=== PATIENT | female | born 1935 | race Caucasian/White ===

== ENCOUNTER 2022-12-13 12:10 | Observation (INO) | payer MEDICARE ==
[2022-12-13 12:50] LABS: #Basophils 0.1 thou/uL (0.0-0.2); #Eosinphils 0.3 thou/uL (0.0-0.7); #Monocytes 1.1 thou/uL (0.11-0.59); %Basophils 0.8 % (0.0-1.0); %Eosinophils 1.6 % (0.0-10.0); %Lymphocytes 11.6 % (21.0-51.0); %Monocytes 6.5 % (0.0-10.0); %Neutrophils 77.7 % (42.0-75.0); Hematocrit 45.1 % (36.0-47.0); Hemoglobin 15.5 g/dL (12.0-16.0); Mean Corpuscular HGB CONC 34.4 g/dL (32.0-36.0); Mean Corpuscular Hemoglobin 32.6 pg (27.0-31.0); Mean Corpuscular Volume 94.9 fl (78.0-98.0); Mean Platelet Volume 10.6 fL (7.4-10.4); Platelet Count 358 10x3/uL (130-400); RBC Distribution Width 14.8 % (11.5-14.5); Red Blood Cell (RBC) Count 4.75 mill/uL (4.20-5.40); White Blood Cell (WBC) Count 16.7 10x3/uL (4.8-10.8)
[2022-12-13] MEDS ORDERED: Metoprolol Tartrate 5 MG/5 ML VIAL ONE ×2 (13:13→17:04)
[2022-12-13] MEDS ORDERED: Aspirin Chewable 81 MG TAB ONE (13:13)
[2022-12-13 14:19] LABS: Bacteria/HPF None Seen HPF (None Seen); Bilirubin Negative (Negative); Blood, Urine Negative (Negative); CAUTI Indications for Culture Pelvic or flank pain; Clarity Clear (Clear); Glucose, Urine (Dipstick) Normal (Negative); Ketone, Urine Negative (Negative); Leukocyte Negative Leu/uL (Negative); Nitrite Negative (Negative); Protein, Urine (Dipstick) Negative (Neg-Trace); RBC/HPF 0-3 HPF (0-3); Specific Gravity, Urine 1.004 (1.002-1.036); Squamous Epithelial None Seen HPF (0-3); Urobilinogen Normal mg/dL (Less than 2); WBC/HPF None Seen HPF (0-3); pH, Urine 7.5 (5.0-9.0)
[2022-12-13 14:23] LABS: Urine Culture Reflex No No
[2022-12-13 14:52] LABS: ALT (SGPT) 30 U/L (8-55); AST (SGOT) 43 U/L (5-34); Albumin 5.1 g/dL (3.4-4.8); Alkaline Phosphatase 94 U/L (40-110); Anion Gap 18 mmol/L (10-20); BUN (Urea Nitrogen) 14 mg/dL (9.8-20.1); Bilirubin, Total 0.8 mg/dL (0.2-1.2); Calc. Creatinine Clearance 0 mL/min (70-130); Calcium 10.1 mg/dL (7.8-10.44); Carbon Dioxide 21 mmol/L (23-31); Chloride 99 mmol/L (98-107); Estimated GFR 63; Globulin 2.8 g/dL (2.4-3.5); Glucose 96 mg/dL (83-110); Potassium 4.1 mmol/L (3.5-5.1); Protein, Total 7.9 g/dL (5.8-8.1); Sodium 134 mmol/L (136-145)
[2022-12-13] MEDS ORDERED: Metoprolol Tartrate 25 MG TAB PO SCH (17:30)
[2022-12-13] MEDS ORDERED: Amlodipine 5 MG TAB PO SCH (17:45)
[2022-12-13 18:05] LABS: Troponin I Less than 0.010 ng/mL (< 0.028)
[2022-12-13 18:21] VITALS: BMI 17.0
[2022-12-13 20:03] LABS: Troponin I Less than 0.010 ng/mL (< 0.028)
[2022-12-13] MEDS ORDERED: NIFEdipine 10 MG CAP PO PRN (20:30)
[2022-12-13] MEDS: Apixaban 2.5 MG TAB PO SCH (21:02)
[2022-12-13] MEDS: Ruxolitinib Phosphate [Jakafi] 5 MG Tablet PO SCH (21:02)
[2022-12-14] MEDS: Acetaminophen 325 MG TAB PO PRN ×3 (00:03→18:08)
[2022-12-14] MEDS ORDERED: Propranolol 60 MG TAB PO SCH (09:00)
[2022-12-14] MEDS: Rosuvastatin 20 MG TAB PO SCH (09:25)
[2022-12-14] MEDS: Apixaban 2.5 MG TAB PO SCH ×2 (09:25→21:02)
[2022-12-14] MEDS: Clopidogrel Bisulfate 75 MG TAB PO SCH (09:25)
[2022-12-14] MEDS: Brimonidine Tartrate 0.2% Ophth Soln 5 ml Bottle L EYE SCH ×2 (09:29→21:02)
[2022-12-14] MEDS ORDERED: Propranolol 40 MG TAB PO SCH (10:30)
[2022-12-14] MEDS: Propranolol 40 MG TAB PO SCH (21:02)
[2022-12-15] MEDS: Acetaminophen 325 MG TAB PO PRN ×2 (01:25→08:02)
[2022-12-15 05:44] LABS: #Basophils 0.1 thou/uL (0.0-0.2); #Eosinphils 0.4 thou/uL (0.0-0.7); #Monocytes 1.1 thou/uL (0.11-0.59); #Neutrophils 13.3 thou/uL (1.40-6.50); %Basophils 0.7 % (0.0-1.0); %Eosinophils 2.4 % (0.0-10.0); %Lymphocytes 10.1 % (21.0-51.0); %Monocytes 6.5 % (0.0-10.0); %Neutrophils 78.9 % (42.0-75.0); Hematocrit 41.3 % (36.0-47.0); Hemoglobin 14.2 g/dL (12.0-16.0); Mean Corpuscular HGB CONC 34.4 g/dL (32.0-36.0); Mean Corpuscular Hemoglobin 32.3 pg (27.0-31.0); Mean Corpuscular Volume 94.1 fl (78.0-98.0); Mean Platelet Volume 10.9 fL (7.4-10.4); Platelet Count 321 10x3/uL (130-400); RBC Distribution Width 14.6 % (11.5-14.5); Red Blood Cell (RBC) Count 4.39 mill/uL (4.20-5.40); White Blood Cell (WBC) Count 16.9 10x3/uL (4.8-10.8)
[2022-12-15 06:03] LABS: Anion Gap 15 mmol/L (10-20); BUN (Urea Nitrogen) 23 mg/dL (9.8-20.1); Calc. Creatinine Clearance 34 mL/min (70-130); Calcium 9.6 mg/dL (7.8-10.44); Carbon Dioxide 24 mmol/L (23-31); Chloride 98 mmol/L (98-107); Estimated GFR 65; Glucose 70 mg/dL (83-110); Potassium 4.2 mmol/L (3.5-5.1); Sodium 133 mmol/L (136-145)
[2022-12-15] MEDS: Apixaban 2.5 MG TAB PO SCH (07:58)
[2022-12-15] MEDS: Clopidogrel Bisulfate 75 MG TAB PO SCH (07:58)
[2022-12-15] MEDS: Propranolol 40 MG TAB PO SCH (07:58)
[2022-12-15] MEDS: Rosuvastatin 20 MG TAB PO SCH (07:59)
[2022-12-15] MEDS: Brimonidine Tartrate 0.2% Ophth Soln 5 ml Bottle L EYE SCH (08:02)
[2022-12-15] MEDS: Ruxolitinib Phosphate [Jakafi] 5 MG Tablet PO SCH (08:03)
[2022-12-15 08:53] VITALS: TEMP 97.5
[2022-12-15] MEDS ORDERED: Valsartan 80 MG TAB PO SCH (09:00)
[2022-12-15 10:40] VITALS: BP 145/76
== END 2022-12-15 10:20 | disposition home or self-care (01) ==
LOC: ERS 12:10 → INTOOBSV 16:17 → 2NO 16:17
PROVIDERS: ADMIT Internal Medicine; ATTEND Family Medicine
DX: I48.91 Unspecified atrial fibrillation (principal); I10 Essential (primary) hypertension; R94.31 Abnormal electrocardiogram [ECG] [EKG]; I73.9 Peripheral vascular disease, unspecified; H40.9 Unspecified glaucoma; D75.1 Secondary polycythemia; Z79.01 Long term (current) use of anticoagulants; Z79.899 Other long term (current) drug therapy
CPT/HCPCS: 71045; 80048; 81001; 82962; 83605; 83880; 84484 ×2; 85025; 85379; 87040; 87086; 93005; 96374; 96376; 99285; G0378 ×4; 36415; 36416; 80053; 84443